=== PATIENT | female | born 1955 | race Caucasian/White ===

== ENCOUNTER 2016-09-10 17:49 | Emergency (ER) | payer OTHER ==
[2017-02-23] MEDS ORDERED: ASPIRIN325 MG PO (13:36)
[2017-02-23] MEDS ORDERED: ELIQUIS2.5 MG PO (13:36)
[2017-02-23] MEDS ORDERED: ATENOLOL25 MG PO (13:36)
[2017-02-23] MEDS ORDERED: ACETAMINOPHEN325 MG PO (13:36)
[2017-02-23] MEDS ORDERED: COLACE100 MG PO (13:36)
[2017-02-23] MEDS ORDERED: PRAVACHOL20 MG PO (13:39)
[2017-02-23] MEDS ORDERED: ZESTRIL5 MG PO (13:39)
[2017-02-23] MEDS ORDERED: [UNRECOGNIZED DRUG - OTHER] TOP (13:39)
[2017-02-23] MEDS ORDERED: CALCIUM 600 +1 EA12 PO (13:40)
[2017-02-23] MEDS ORDERED: FOLIC ACID0.4 MG PO (13:40)
[2017-02-23] MEDS ORDERED: PROVENTIL HFA6.7 GM INH (13:40)
[2017-02-23] MEDS ORDERED: LAXATIVE OF CHOICE (13:40)
[2017-02-23] MEDS ORDERED: NORCO 5-325 TA1 EACH PO (13:41)
== END 2016-09-10 19:16 | disposition home or self-care (01) ==
LOC: FER 17:49
DX: L03.116 Cellulitis of left lower limb (principal); G89.29 Other chronic pain; I10 Essential (primary) hypertension; E78.5 Hyperlipidemia, unspecified; F17.210 Nicotine dependence, cigarettes, uncomplicated; Z88.0 Allergy status to penicillin; Z79.82 Long term (current) use of aspirin; Z79.899 Other long term (current) drug therapy
CPT/HCPCS: 99283